=== PATIENT | male | born 1945 | race Caucasian/White ===

== ENCOUNTER → 2016-11-05 | Outpatient (CLI) | payer BC, MEDICARE, OTHER ==
[~2016-11-05] MED LIST: FINA5TAB4 PO
== END | disposition home or self-care (01) ==
LOC: STAR 10:05
PROVIDERS: ATTEND Orthopaedic Surgery
DX: Z01.810 Encounter for preprocedural cardiovascular examination (principal); M75.122 Complete rotator cuff tear or rupture of left shoulder, not specified as traumatic; M75.22 Bicipital tendinitis, left shoulder; M75.42 Impingement syndrome of left shoulder
CPT/HCPCS: 93005

== ENCOUNTER 2016-11-12 07:08 | Day surgery (SDC) | payer BC ==
[~2016-11-12] VITALS: Ht 185.4 cm; Wt 91.5 kg
[~2016-11-12 07:08] MED LIST changes: +BUPIVACAINE/PF-EPI 0.25% 1:200K ONE; +LIDOCAINE 1%-EPI 1:100K, 50ML ONE
[2016-11-12] MEDS ORDERED: LACTATED RINGERS 1,000 ML IV SCH (08:16)
[2016-11-12] MEDS ORDERED: CLINDAMYCIN 150 MG/ML, 6ML ONE (08:29)
[2016-11-12] MEDS ORDERED: LABETALOL 5MG/ML, 20ML IV PRN (08:30)
[2016-11-12] MEDS ORDERED: hydrALAzine 20 MG/ML, 1ML IV PRN (08:30)
[2016-11-12] MEDS ORDERED: ACETAMINOPHEN 325 MG TABLET PO PRN (08:30)
[2016-11-12] MEDS ORDERED: HYDROmorphone 1 MG/ML, 1ML IV PRN (08:30)
[2016-11-12] MEDS ORDERED: EPHEDRINE 50 MG/ML, 1ML IVPush PRN (08:30)
[2016-11-12] MEDS ORDERED: METOPROLOL 1 MG/ML, 5ML IV PRN (08:30)
[2016-11-12] MEDS ORDERED: ALBUTEROL SULFATE 2.5 MG/3 ML NPPB PRN (08:30)
[2016-11-12] MEDS ORDERED: FENTANYL PF 100 MCG/2ML IV PRN (08:30)
[2016-11-12] MEDS ORDERED: ONDANSETRON 2MG/ML, 2ML IVPush PRN (08:30)
[2016-11-12] MEDS ORDERED: OXYcodone 5 MG/5 ML ORAL.SOL UDC PO PRN (08:30)
[2016-11-12] MEDS ORDERED: FENTANYL PF 250 MCG/5ML ONE (08:32)
[2016-11-12] MEDS ORDERED: MIDAZOLAM 1 MG/ML, 2ML ONE (08:32)
[2016-11-12 08:44] VITALS: BP 137/80
[2016-11-12] MEDS ORDERED: NEOSTIGMINE 1 MG/ML, 10ML ONE (09:35)
[2016-11-12] MEDS ORDERED: ROCURONIUM 10 MG/ML ONE (09:35)
[2016-11-12] MEDS ORDERED: ONDANSETRON 2MG/ML, 2ML ONE (09:35)
[2016-11-12] MEDS ORDERED: METOCLOPRAMIDE 5 MG/ML, 2ML ONE (09:35)
[2016-11-12] MEDS ORDERED: DEXAMETHASONE 4 MG/ML, 1ML ONE (09:35)
[2016-11-12] MEDS ORDERED: CEFAZOLIN 1,000 MG ONE (09:35)
[2016-11-12] MEDS ORDERED: GLYCOPYRROLATE 0.2MG/1ML ONE (09:35)
[2016-11-12] MEDS ORDERED: PROPOFOL 10 MG/ML, 20ML ONE (09:35)
[2016-11-12] MEDS ORDERED: BUPIVACAINE/PF-EPI 0.25% 1:200K INFIL ONE (09:58)
[2016-11-12] MEDS ORDERED: LIDOCAINE 1%-EPI 1:100K, 50ML INFIL ONE (09:59)
[2016-11-12] MEDS ORDERED: BUPIVACAINE/PF 0.5% ONE (12:04)
[2016-11-12] MEDS ORDERED: FENTANYL PF 100 MCG/2ML ONE (12:07)
[2016-11-12] MEDS ORDERED: MEPERIDINE/PF 25MG/0.5ML ONE (12:07)
[2016-11-12] MEDS ORDERED: OXYcodone 5 MG/5 ML ORAL.SOL UDC ONE (12:08)
[2016-11-12] MEDS ORDERED: methylPREDNISolone*ACETATE* 80 MG/ML IM ONE (12:30)
[2016-11-13] MEDS ORDERED: FINASTERIDE 5 MG TABLET PO SCH (09:00)
== END 2016-11-12 14:30 | disposition home or self-care (01) ==
LOC: OUT 07:08
PROVIDERS: ATTEND Orthopaedic Surgery
DX: S46.012A Strain of muscle(s) and tendon(s) of the rotator cuff of left shoulder, initial encounter (principal); S43.432A Superior glenoid labrum lesion of left shoulder, initial encounter; M19.012 Primary osteoarthritis, left shoulder; M25.812 Other specified joint disorders, left shoulder; M65.812 Other synovitis and tenosynovitis, left shoulder; S46.212A Strain of muscle, fascia and tendon of other parts of biceps, left arm, initial encounter; N40.0 Benign prostatic hyperplasia without lower urinary tract symptoms; X58.XXXA Exposure to other specified factors, initial encounter; Y93.9 Activity, unspecified; Y92.9 Unspecified place or not applicable; Y99.9 Unspecified external cause status
CPT/HCPCS: 29823; 29824; 29826; 29827; 29828; J0690; J1100; J2250; J2405; J2704; J2710; J2765; J3010; J3490; J7120

== ENCOUNTER → 2017-05-06 | Outpatient (CLI) | payer BC ==
[~2017-05-06] MED LIST changes: -BUPIVACAINE/PF-EPI 0.25% 1:200K ONE; -LIDOCAINE 1%-EPI 1:100K, 50ML ONE; +NONE PER PT
== END | disposition home or self-care (01) ==
LOC: STAR 13:55
PROVIDERS: ATTEND Orthopaedic Surgery
DX: M75.22 Bicipital tendinitis, left shoulder (principal); M75.42 Impingement syndrome of left shoulder; M19.012 Primary osteoarthritis, left shoulder; M75.122 Complete rotator cuff tear or rupture of left shoulder, not specified as traumatic; M75.121 Complete rotator cuff tear or rupture of right shoulder, not specified as traumatic
CPT/HCPCS: 93005

== ENCOUNTER 2017-07-10 05:18 | Inpatient (IN) | payer MEDICARE, BC ==
[~2017-07-10] VITALS: Ht 185.4 cm; Wt 99.5 kg
[2017-07-10 06:10] VITALS: BP 129/85
[2017-07-10] MEDS ORDERED: BUPIVACAINE/PF 0.5% ONE (06:11)
[2017-07-10] MEDS ORDERED: cloniDINE/PF 100 MCG/ML, 10 ML ONE (06:12)
[2017-07-10] MEDS ORDERED: LACTATED RINGERS 1,000 ML IV SCH (06:13)
[2017-07-10] MEDS ORDERED: MIDAZOLAM 1 MG/ML, 2ML ONE ×2 (06:17→06:49)
[2017-07-10] MEDS ORDERED: LIDOCAINE GEL 2%, 5ML ONE (06:17)
[2017-07-10] MEDS ORDERED: FENTANYL PF 100 MCG/2ML ONE (06:17)
[2017-07-10] MEDS ORDERED: PROPOFOL 10 MG/ML, 20ML ONE ×2 (06:19→06:49)
[2017-07-10] MEDS ORDERED: CEFAZOLIN 1,000 MG ONE ×2 (06:19→06:49)
[2017-07-10] MEDS ORDERED: SUCCINYLCHOLINE 20 MG/ML, 10ML ONE ×2 (06:19→06:49)
[2017-07-10] MEDS ORDERED: VANCOMYCIN PER PHARMACY MC STA (06:19)
[2017-07-10] MEDS ORDERED: ONDANSETRON 2MG/ML, 2ML ONE ×2 (06:19→06:49)
[2017-07-10] MEDS ORDERED: LIDOCAINE-MPF 2% ,5ML ONE (06:19)
[2017-07-10] MEDS ORDERED: DEXAMETHASONE 4 MG/ML, 1ML ONE ×3 (06:19→07:44)
[2017-07-10] MEDS ORDERED: CLINDAMYCIN 150 MG/ML, 6ML ONE (06:22)
[2017-07-10] MEDS ORDERED: VANCOMYCIN 1,800 MG in SODIUM CHLORIDE 0.9% 250 ML IV ONE (06:30)
[2017-07-10] MEDS ORDERED: EPHEDRINE 50 MG/ML, 1ML ONE ×2 (06:49→07:22)
[2017-07-10] MEDS ORDERED: SENNA/DOCUSATE TABLET PO PRN (07:00)
[2017-07-10] MEDS ORDERED: morphine SULFATE 10 MG/ML, 1ML IV PRN (07:00)
[2017-07-10] MEDS ORDERED: BISACODYL 10 MG SUPP PR PRN (07:00)
[2017-07-10] MEDS ORDERED: MAGNESIUM HYDROXIDE 8%, 30ML UDC PO PRN (07:00)
[2017-07-10] MEDS: HYDROcodone/APAP 10/325 MG TABLET PO SCH ×4 (07:00→20:37)
[2017-07-10] MEDS ORDERED: ONDANSETRON 2MG/ML, 2ML IV PRN (07:00)
[2017-07-10] MEDS ORDERED: ACETAMINOPHEN 325 MG TABLET PO PRN ×2 (07:00→08:00)
[2017-07-10 07:19] LABS: PATH.CAST-FLAG NOT PRESENT; SPERM-FLAG NOT PRESENT; SRC-FLAG NOT PRESENT; XTAL-FLAG NOT PRESENT; YLC-FLAG NOT PRESENT
[2017-07-10] MEDS ORDERED: MIDAZOLAM 1 MG/ML, 2ML IV PRN (08:00)
[2017-07-10] MEDS ORDERED: OXYcodone 5 MG/5 ML ORAL.SOL UDC PO PRN (08:00)
[2017-07-10] MEDS ORDERED: FENTANYL PF 100 MCG/2ML IV PRN (08:00)
[2017-07-10] MEDS ORDERED: EPHEDRINE 50 MG/ML, 1ML IVPush PRN (08:00)
[2017-07-10] MEDS ORDERED: PROMETHAZINE 25 MG/ML, 1ML IV PRN (08:00)
[2017-07-10] MEDS ORDERED: LABETALOL 5MG/ML, 20ML IV PRN (08:00)
[2017-07-10] MEDS ORDERED: MEPERIDINE/PF 25MG/0.5ML IVPush PRN (08:00)
[2017-07-10] MEDS ORDERED: HYDROmorphone 1 MG/ML, 1ML IV PRN (08:00)
[2017-07-10] MEDS ORDERED: ONDANSETRON 2MG/ML, 2ML IVPush PRN (08:00)
[2017-07-10] MEDS ORDERED: DIAZEPAM 5 MG/ML, 2ML IVPush PRN (08:00)
[2017-07-10] MEDS ORDERED: ALBUTEROL/IPRATROPIUM 2.5MG/0.5MG, 3 ML NPPB PRN (08:00)
[2017-07-10] MEDS ORDERED: hydrALAzine 20 MG/ML, 1ML IV PRN (08:00)
[2017-07-10] MEDS ORDERED: OXYcodone 5 MG/5 ML ORAL.SOL UDC ONE (09:21)
[2017-07-10] MEDS: MULTIVITAMINS/MINERALS TABLET PO SCH (11:14)
[2017-07-10] MEDS: DOCUSATE 100 MG CAPSULE PO SCH ×2 (11:14→20:37)
[2017-07-10] MEDS: CEFAZOLIN PMX 2GM/50ML 50 ML IVPB SCH ×2 (11:40→20:38)
[2017-07-10] MEDS: KETOROLAC 30 MG/1 ML IV SCH ×2 (11:40→20:38)
[2017-07-10] MEDS: D5%-0.45% NACL 1,000 ML IV SCH ×2 (11:41→21:00)
[2017-07-10 14:17] VITALS: BP 112/99
[2017-07-10 19:37] VITALS: BP 113/66
[2017-07-10] MEDS ORDERED: DIPHENHYDRAMINE 25 MG CAPSULE PO PRN (21:00)
[2017-07-10 23:28] VITALS: BP 106/66
[2017-07-11] MEDS: HYDROcodone/APAP 10/325 MG TABLET PO SCH ×3 (00:31→10:12)
[2017-07-11 03:43] VITALS: BP 113/60
[2017-07-11 03:49] VITALS: BP 103/60
[2017-07-11 03:57] VITALS: BP 113/71
[2017-07-11] MEDS: KETOROLAC 30 MG/1 ML IV SCH (04:47)
[2017-07-11] MEDS: CEFAZOLIN PMX 2GM/50ML 50 ML IVPB SCH (04:47)
[2017-07-11] MEDS: D5%-0.45% NACL 1,000 ML IV SCH (05:42)
[2017-07-11 08:40] VITALS: BP 105/67
[2017-07-11] MEDS: DOCUSATE 100 MG CAPSULE PO SCH (10:12)
[2017-07-11] MEDS: MULTIVITAMINS/MINERALS TABLET PO SCH (10:12)
== END 2017-07-11 11:04 | disposition home or self-care (01) | DRG 483 ==
LOC: ORIP 05:18 → 4NOR 10:43 → EDSTATUS 14:00 → DCLOUNGE 07-11 10:28
PROVIDERS: ADMIT Orthopaedic Surgery; ATTEND Orthopaedic Surgery
PROC: 0RPK0JZ Removal of Synthetic Substitute from Left Shoulder Joint, Open Approach (ICD-10-PCS; 2017-07-10)
PROC: 0LS30ZZ Reposition Right Upper Arm Tendon, Open Approach (ICD-10-PCS; 2017-07-10)
PROC: 0RRJ00Z Replacement of Right Shoulder Joint with Reverse Ball and Socket Synthetic Substitute, Open Approach (ICD-10-PCS; principal; 2017-07-10 07:00)
DX: M19.012 Primary osteoarthritis, left shoulder (principal); M65.9 Synovitis and tenosynovitis, unspecified; M75.20 Bicipital tendinitis, unspecified shoulder; S46.219A Strain of muscle, fascia and tendon of other parts of biceps, unspecified arm, initial encounter
CPT/HCPCS: 81001; 87081; C1713; C1776; J0690; J1100; J1885; J2250; J2405; J2704; J3010; J3370; J3490; J0330; J0735; J7050; J7120